=== PATIENT | female | born 1950 | race African-American/Black ===

== ENCOUNTER 2016-03-01 07:27 | Day surgery (SDC) | payer OTHER ==
[~2016-03-01] VITALS: Ht 162.6 cm; Wt 74.7 kg
[~2016-03-01 07:27] MED LIST: DIOVAN; PHENERGAN 25 TA25 MG PO; ZOFRAN 4MG T4 MG/TAB PO
[2016-03-01 08:53] VITALS: BP 117/49; PULSE 91; TEMP 98.2
[2016-03-01] MEDS ORDERED: PRINZIDE 12.5 M1 TA1 PO (09:12)
[2016-03-01] MEDS ORDERED: TRUBIOTICS PO (09:14)
[2016-03-01] MEDS ORDERED: SYNTHROID 0.0.025 MG PO (09:15)
[2016-03-01 17:00] VITALS: BP 125/55; PULSE 81; TEMP 96.6
[2016-03-01 17:15] VITALS: BP 122/50; PULSE 85
[2016-03-01 17:30] VITALS: BP 141/54; PULSE 88
[2016-03-01 17:45] VITALS: BP 110/54; PULSE 80
[2016-03-01 18:15] VITALS: BP 123/52; PULSE 86
== END 2016-03-01 20:17 | disposition home or self-care (01) ==
LOC: SDCO 07:27 → SURG 16:55 → SDCO 20:17
DX: C50.211 Malignant neoplasm of upper-inner quadrant of right female breast (principal); I10 Essential (primary) hypertension; E03.9 Hypothyroidism, unspecified; K58.9 Irritable bowel syndrome, unspecified
CPT/HCPCS: OP; A9541; J0690; J1100; J2405; J2704; J3010; J7120; Q9968

== ENCOUNTER → 2016-03-23 | Outpatient (CLI) | payer OTHER ==
[~2016-03-23] MED LIST changes: +ASPIRIN E.C. 8181 MG PO; +CLARITIN 1010 MG/TAB PO; +COLACE 100100 MG/CAP PO; +NORCO 325 MG-51 TAB PO; +PRINZIDE 12.5 M1 TA1 PO; +SYNTHROID 0.0.025 MG PO; +TRUBIOTICS PO; +ZANTAC 7575 MG PO; +ZOFRAN8 MG PO
== END ==
LOC: COL.VAS 03-21 12:30
DX: C50.211 Malignant neoplasm of upper-inner quadrant of right female breast (principal)

== ENCOUNTER 2016-03-24 07:21 | Day surgery (SDC) | payer OTHER ==
[~2016-03-24] VITALS: Ht 162.6 cm; Wt 34.2 kg
[~2016-03-24 07:21] MED LIST changes: -ASPIRIN E.C. 8181 MG PO; -CLARITIN 1010 MG/TAB PO; -COLACE 100100 MG/CAP PO; -NORCO 325 MG-51 TAB PO; -ZANTAC 7575 MG PO; -ZOFRAN8 MG PO
[2016-03-24 08:27] VITALS: BP 110/59; PULSE 77; TEMP 97.6
[2016-03-24 10:20] VITALS: BP 115/62; PULSE 68; TEMP 97.3
[2016-03-24 10:35] VITALS: BP 121/56; PULSE 67
[2016-03-24 10:50] VITALS: BP 108/44; PULSE 66
[2016-03-24] MEDS ORDERED: NORCO 325 MG-51 TAB PO (10:55)
== END 2016-03-24 11:25 | disposition home or self-care (01) ==
LOC: SDCO 07:21
DX: C77.3 Secondary and unspecified malignant neoplasm of axilla and upper limb lymph nodes (principal); Z17.0 Estrogen receptor positive status [ER+]; I10 Essential (primary) hypertension
CPT/HCPCS: C1788; J0690; J1644; J2704; J3010; J7120

== ENCOUNTER 2016-05-06 10:04 | Emergency (ER) | payer OTHER ==
[~2016-05-06] VITALS: Ht 157.5 cm; Wt 65.9 kg
[~2016-05-06 10:04] MED LIST changes: +NORCO 325 MG-51 TAB PO
[2016-05-06 10:05] VITALS: TEMP 97.5
[2016-05-06] MEDS ORDERED: CLARITIN 1010 MG/TAB PO (10:56)
[2016-05-06] MEDS ORDERED: COLACE 100100 MG/CAP PO (10:56)
[2016-05-06] MEDS ORDERED: ASPIRIN E.C. 8181 MG PO (10:56)
[2016-05-06] MEDS ORDERED: ZANTAC 7575 MG PO (10:58)
[2016-05-06] MEDS ORDERED: ZOFRAN8 MG PO (10:58)
[2016-05-06 11:00] LABS: MEAN CELL VOLUME 84 fl (80.0-100.0); MEAN CORPUSCULAR HGB CONC 33 g/dl (33.0-37.0); MEAN PLATELET VOLUME 9.3 fl (7.4-10.4); PLATELET COUNT 259 K/mm3 (130-400); RED BLOOD COUNT 3.77 M/mm3 (4.10-5.30); REDCELL DISTRIBUTION WIDTH-CV 14.6 % (11.5-14.5); WHITE BLOOD COUNT 5.2 K/mm3 (4.8-10.8)
[2016-05-06 11:01] LABS: HEMATOCRIT 31.7 % (37.0-47.0); HEMOGLOBIN 10.5 g/dl (12.5-16.0); MEAN CORPUSCULAR HEMOGLOBIN 28 pg (27.0-31.0)
[2016-05-06 11:02] LABS: ADD PATHOLOGY DIFF REVIEW NO
[2016-05-06 11:11] LABS: ADJUSTED CALCIUM 9.4 mg/dL (8.4-10.2); ALBUMIN 4.2 gm/dL (3.5-5.0); BILIRUBIN,TOTAL 0.6 mg/dL (0.0-1.0); CALCIUM 9.6 mg/dL (8.4-10.2); CREATININE, serum 0.67 mg/dL (0.52-1.25); POTASSIUM 3.5 mmol/L (3.4-5.0); TOTAL PROTEIN 7.6 gm/dL (6.4-8.2)
[2016-05-06 12:11] LABS: BAND 15 % (0-10); BASOPHIL 1 % (0-2); METAMYELOCYTE 1 % (0-0); NEUTROPHILS 44 % (42.0-75.2); PLATELET ESTIMATE NORMAL (NORMAL); TOTAL CELLS COUNTED 100
[2016-05-06 12:12] LABS: POLYCHROMASIA 1+
[2016-05-06 12:13] LABS: ANISOCYTOSIS 1+; DOHLE BODIES PRESENT; OVALOCYTES 1+; TOXIC GRANULATION PRESENT
[2016-05-06 15:04] VITALS: BP 122/50; PULSE 83
== END 2016-05-06 15:20 | disposition home or self-care (01) ==
LOC: COL.ER 10:04
PROVIDERS: Emergency Medicine
DX: K56.41 Fecal impaction (principal); K62.89 Other specified diseases of anus and rectum; I10 Essential (primary) hypertension
CPT/HCPCS: J1170; J2765; J3010; J7030

== ENCOUNTER → 2017-01-22 | Outpatient (CLI) | payer BC ==
[~2017-01-22] MED LIST changes: +ASPIRIN E.C. 8181 MG PO; +CLARITIN 1010 MG/TAB PO; +COLACE 100100 MG/CAP PO; +ZANTAC 7575 MG PO; +ZOFRAN8 MG PO
== END ==
LOC: MC.RAD 13:32
DX: Z12.31 Encounter for screening mammogram for malignant neoplasm of breast (principal); N64.89 Other specified disorders of breast; Z98.890 Other specified postprocedural states

== ENCOUNTER → 2017-02-02 | Outpatient (CLI) | payer BC | LOC: MC.RAD 08:26 | DX: N64.89 Other specified disorders of breast (principal); Z98.890 Other specified postprocedural states ==

== ENCOUNTER → 2017-08-03 | Outpatient (CLI) | payer BC | LOC: MC.RAD 12:57 | DX: N64.4 Mastodynia (principal); I10 Essential (primary) hypertension; Z85.3 Personal history of malignant neoplasm of breast; Z98.890 Other specified postprocedural states ==

== ENCOUNTER → 2018-05-09 | Outpatient (CLI) | payer BC | LOC: MC.RAD 09:45 | DX: C50.211 Malignant neoplasm of upper-inner quadrant of right female breast (principal); Z98.890 Other specified postprocedural states | CPT/HCPCS: G0279 ==

== ENCOUNTER → 2018-08-05 | Outpatient (CLI) | payer MEDICARE, BC | LOC: MC.RAD 08:45 | DX: Z12.31 Encounter for screening mammogram for malignant neoplasm of breast (principal); Z85.3 Personal history of malignant neoplasm of breast ==

== ENCOUNTER → 2019-01-16 | Outpatient (CLI) | payer MEDICARE, BC | LOC: MC.RAD 09:51 | DX: C50.211 Malignant neoplasm of upper-inner quadrant of right female breast (principal); Z90.11 Acquired absence of right breast and nipple; Z98.890 Other specified postprocedural states | CPT/HCPCS: G0279 ==

== ENCOUNTER → 2019-04-03 | Outpatient (CLI) | payer MEDICARE, BC | LOC: COL.RAD 09:13 | DX: M54.2 Cervicalgia (principal) ==

== ENCOUNTER → 2019-08-11 | Outpatient (CLI) | payer MEDICARE, BC | LOC: MC.RAD 09:47 | DX: Z12.31 Encounter for screening mammogram for malignant neoplasm of breast (principal); Z98.82 Breast implant status; Z98.890 Other specified postprocedural states; Z92.3 Personal history of irradiation ==

== ENCOUNTER → 2020-04-02 | Outpatient (CLI) | payer MEDICARE | LOC: MC.RAD 09:54 | DX: N63.10 Unspecified lump in the right breast, unspecified quadrant (principal); Z98.890 Other specified postprocedural states ==

== ENCOUNTER → 2020-09-20 | Outpatient (CLI) | payer MEDICARE | LOC: MC.RAD 09:43 | DX: Z12.31 Encounter for screening mammogram for malignant neoplasm of breast (principal); Z85.3 Personal history of malignant neoplasm of breast; Z98.890 Other specified postprocedural states; Z92.3 Personal history of irradiation ==

== ENCOUNTER → 2021-09-21 | Outpatient (CLI) | payer MEDICARE | LOC: MC.RAD 10:01 | DX: Z12.31 Encounter for screening mammogram for malignant neoplasm of breast (principal); Z85.3 Personal history of malignant neoplasm of breast; Z90.11 Acquired absence of right breast and nipple; Z92.3 Personal history of irradiation ==

== ENCOUNTER → 2021-10-26 | Outpatient (CLI) | payer OTHER | LOC: COL.RAD 12:59 | DX: R22.1 Localized swelling, mass and lump, neck (principal); Z85.3 Personal history of malignant neoplasm of breast ==

== ENCOUNTER → 2023-09-24 | Outpatient (CLI) | payer MEDICARE | LOC: MC.RAD 05:35 | DX: Z12.31 Encounter for screening mammogram for malignant neoplasm of breast (principal) ==